=== PATIENT | male | born 1995 | race Asian ===

== ENCOUNTER 2023-07-12 14:08 | Emergency (ER) | payer OTHER ==
[2023-07-12 14:21] VITALS: BP 148/88; PULSE 70; RESP 18; TEMP 98.5
[2023-07-12] MEDS ORDERED: IBUPROFEN 600 MG TABLET (FP) PO ONE (15:47)
[2023-07-12] MEDS ORDERED: ACETAMINOPHEN 500 MG TABLET (FP) ONE (15:47)
[2023-07-12] MEDS: ACETAMINOPHEN 500 MG TABLET (FP) PO ONE (15:52)
[2023-07-12] MEDS: IBUPROFEN 600 MG TABLET (FP) PO ONE (15:52)
== END 2023-07-12 18:03 | disposition home or self-care (01) ==
LOC: JER 14:08
DX: M54.6 Pain in thoracic spine (principal); R07.89 Other chest pain
CPT/HCPCS: 36415; 71046-TC-FY; 84484; 93005; 93010; 99285-25